=== PATIENT | male | born 1975 | race Caucasian/White ===

== ENCOUNTER 2019-08-07 08:09 | Day surgery (SDC) | payer OTHER ==
[2019-08-07] VITALS (12 sets, daily range): BP systolic 111–123; BP diastolic 69–84; PULSE 64–90; RESP 13–20
[~2019-08-07] VITALS: Ht 182.9 cm; Wt 85.7 kg
[2019-08-07] MEDS ORDERED: CEFAZOLIN 2 GM/50 ML (PMX) 50 ML IVPB ONE (08:30)
[2019-08-07] MEDS ORDERED: SOD CHLORIDE 0.9% 1,000 ML IV ONE (08:30)
[2019-08-07] MEDS ORDERED: POLYMYXIN/BACITRACIN 1L IRRIG ONE (09:35)
[2019-08-07] MEDS ORDERED: BUPIVACAINE 0.25% (MPF) 30 ML INJ ONE (09:35)
[2019-08-07] MEDS ORDERED: OXYCODONE/ACETAMINOPHEN (5/325) TAB PO PRN (10:30)
[2019-08-07] MEDS ORDERED: HYDROmorphONE 1 MG/5 ML IV SYRINGE IV PRN ×3 (10:30)
[2019-08-07] MEDS ORDERED: MIDAZOLAM 1 MG/ML 2 ML INJ ONE (10:45)
[2019-08-07] MEDS ORDERED: LIDOCAINE 2% (SDV) 5 ML INJ ONE (10:45)
[2019-08-07] MEDS ORDERED: ROCURONIUM 50 MG INJ ONE (10:45)
[2019-08-07] MEDS ORDERED: PROPOFOL 20 ML ONE (10:45)
[2019-08-07] MEDS ORDERED: DESFLURANE 15 MIN ONE (10:45)
[2019-08-07] MEDS ORDERED: ROPIVACAINE 0.5 % 30 ML VIAL ONE (10:54)
[2019-08-07] MEDS ORDERED: CEFAZOLIN 1 GM INJ ONE (11:03)
[2019-08-07] MEDS ORDERED: ONDANSETRON 4 MG INJ ONE (11:06)
[2019-08-07] MEDS ORDERED: SUGAMMADEX SODIUM 200 MG/2 ML VIAL IV ONE (11:51)
[2019-08-07] MEDS ORDERED: HYDROCODONE/APAP (5/325) TAB PO ONE (12:00)
[2019-08-07] MEDS: OXYCODONE/ACETAMINOPHEN (5/325) TAB PO PRN ×2 (12:46→13:28)
== END 2019-08-07 14:00 | disposition home or self-care (01) ==
LOC: SDS 08:09
PROVIDERS: ATTEND Surgery
DX: K40.30 Unilateral inguinal hernia, with obstruction, without gangrene, not specified as recurrent (principal); Z87.891 Personal history of nicotine dependence
CPT/HCPCS: 49507; 71045; 80053; 85025; 85610; 85730; C1781; J0690; J1170; J2250; J2405; J2795; J3010; Z7512; Z7610